=== PATIENT | male | born 1940 | race Caucasian/White ===

== ENCOUNTER 2024-01-04 08:42 | Emergency (ER) | payer MEDICARE, OTHER, SELFPAY ==
[2024-01-04 08:43] VITALS: BP 116/66
--- NOTE | 2024-01-04 09:28 | ED.GENMED ---
History of Present Illness
General
Chief Complaint: Musculo-Skeletal Complaint
Source: patient
Time Seen by Provider: 01/04/24 09:10
Nursing documentation reviewed up to this point in time: agreed with
History of Present Illness
History of Present Illness:
Patient is an 83-year-old male who presents to the ER for evaluation of right finger injury. Patient reports he fell earlier this morning and dislocated his fourth finger. He reports he put it back in place but has a laceration to the volar aspect
of his fourth finger. He is unsure of his last tetanus.
Past History
Past History
ED Past Medical History: Other (n/a)
ED Past Surgical History: Other (n/a)
Social History
Tobacco: Non-smoker
Living: with family
Review of Systems
Review of Systems
Allergies reviewed?: Yes
All Other Systems: ROS reviewed and negative except as documented in HPI and ROS
Constitutional: Reports no symptoms
Musculoskeletal: Reports other (Right fourth finger dislocation, laceration)
Skin: Reports other (Right fourth finger laceration)
Psychiatric: Reports no symptoms
Phy Exam
General Physical Exam
General Presentation: no apparent distress
General age: appears stated age
General Skin: warm and dry
General Habitus: normal
General Mental: alert
General Hydration: appears well hydrated
Neurological Exam
Neurological Exam: alert and oriented x3
Musculoskeletal Exam
Musculoskeletal Exam: full ROM and other (Right fourth finger with mild swelling volar aspect of fourth finger with 2 cm full-thickness V-shaped laceration along the DIP joint able to flex and extend finger no deficit in tendon no tendon visible no
bony finger tenderness )
Skin Exam
Skin Exam: normal color and warm/dry
Psychiatric Exam
Psychiatric Exam: normal mood/affect
Course
Orders/Labs/Results
Orders:
Orders
01/04/24 08:49
Finger(s)/Thumb 2 View Rt [CR Finger(s)/thumb Min 2 Vw Rt] Urgent
Comment:
Reason For Exam: fell and landed on right ring finger
Indicate Which Finger:: Ring Finger
01/04/24 09:29
Tetanus/Diphth/Acelpertussis [Adacel] 0.5 ml IM .ONCE ONE
01/04/24 09:52
Cephalexin Monohydrate [Keflex] 500 mg PO NOW STA
Vital Signs
Initial and Last Documented VS:
Initial Vital Signs
Temp Pulse Resp BP Pulse Ox
97.3 F 56 16 116/66 100
01/04/24 08:43 01/04/24 08:43 01/04/24 08:43 01/04/24 08:43 01/04/24 08:43
Last Documented Vital Signs
Temp Pulse Resp BP Pulse Ox
97.3 F 56 16 116/66 100
01/04/24 08:43 01/04/24 08:43 01/04/24 08:43 01/04/24 08:43 01/04/24 08:43
Procedures
Laceration Closure
Right Volar Fourth Finger:
Status of Wound: clean
Size of Wound in cm: 2
Description of Wound Edges: sharp and flap-poorly vascularized
Preparation: cleaned with saline
Anesthesia: 1% Lidocaine and Digital-Regional
Revision/Debridement: routine- no revision and irrigate-direct pressure
Type of Closure: single layer closure and interrupted sutures
Skin Closure Material: 5-0 nylon
Number of sutures: 3
MDM/Problems Addressed
Differential Diagnosis Includes:
Not limited to dislocation fracture laceration
MDM/Problems Addressed:
Patient describes dislocating his finger at home putting it back into place and does complain of laceration. Patient presents awake alert no acute distress on exam there is mild swelling there is no obvious fracture on x-ray small laceration was
repaired as documented no tendon visible or tendon deficit able to flex and extend. Tetanus updated. With open wound and history of dislocation will treat with antibiotics x 5 days.
*Critical Care Note
Total Time (30-74mins, 75-104mins- exclusive of procedures): Not Applicable
ED Attending Note
-
Portions of this chart may have been created with voice recognition software.� Occasional wrong word or��sound alike� substitutions may have occurred due to the inherent limitations of voice recognition software.
Discharge Plan
Departure
Patient Disposition: Home (Routine Discharge)
Date of Disposition: 01/04/24
Time of Disposition: :53
Patient with high blood pressure during this ER visit?: No
Covid-19: Not Applicable
Discharge Problem:
Finger laceration, Dislocated finger
Instructions: Finger Dislocation (DC), Laceration Repair With Stitches ED
Prescriptions:
New
cephalexin 500 mg capsule
500 mg PO Q6H Qty: 20 0RF
No Action
prednisone 20 MG tablet
40 mg PO DAILY Qty: 8 0RF
Referrals:
Jennifer Quijano PA-C [Family Provider] -
Jewel Mota MD [Active] -
Activity Restrictions/Additional Instructions:
As discussed keep wound clean and dry for 24 hours after 24 hours remove dressing remove splint wash twice a day with soap and water pat dry and apply small layer of antibiotic ointment to the area. Do wound care twice a day. Wear splint until
seen and eval by hand specialist.
Keep elevated the next 24 hours. You may ice over the affected area for the next 24 hours 20 minutes at a time several times a day.
Antibiotic was sent to pharmacy as directed to take daily for the next 5 days to prevent infection
Return if any worsening of symptoms of any concerns of infection of increased pain swelling redness drainage red streaking fever chills.
Interventions
Interventions:
*Risk Screen - Suicide Last Done: 01/04/24 08:48
*Neglect/Abuse Screening Last Done: 01/04/24 08:48
Discharge Date and Time
Print Language: JAPANESE
[2024-01-04] MEDS: ADACEL 0.5 ML IM (09:37)
[2024-01-04] MEDS: KEFLEX 500 MG PO (10:05)
== END 2024-01-04 10:14 | disposition home or self-care (01) ==
LOC: EMR 08:42
PROVIDERS: EMERGENCY PHYSICIAN Emergency Medicine; FAMILY PHYSICIAN Student in an Organized Health Care Education/Training Program
DX: S61.214A Laceration without foreign body of right ring finger without damage to nail, initial encounter (principal); S63.254A Unspecified dislocation of right ring finger, initial encounter; W19.XXXA Unspecified fall, initial encounter; Z23 Encounter for immunization
CPT/HCPCS: 99283; 12001; 90471; 73140; 90715